=== PATIENT | female | born 1995 | race Caucasian/White ===

== ENCOUNTER 2017-08-22 09:00 | Emergency (ER) | payer BC ==
[~2017-08-22] VITALS: Ht 172.7 cm; Wt 61.2 kg
[2017-08-22] MEDS ORDERED: ACETAMINOPHEN 500 MG TABLET PO ONE (09:15)
[2017-08-22] MEDS ORDERED: IBUPROFEN 400 MG TABLET. PO ONE (09:15)
[2017-08-22] MEDS ORDERED: IV NORMAL SALINE 500ML BAG 500 ML IV SCH (09:15)
[2017-08-22] MEDS ORDERED: 0.9 % SODIUM CHLORIDE 10 ML DISP.SYRIN. IV PRN (09:15)
--- NOTE | 2017-08-22 09:18 | PHYS DOC ---
Past Medical History Past Medical History: Depression Additional Past Medical Histor: ADHD Past Surgical History: No Surgical History Alcohol Use: Occasionally Drug Use: Marijuana Adult General Chief Complaint Chief Complaint: SYNCOPE HPI HPI Patient is a pleasant 21-year-old female who suffered a syncopal episode this morning while standing in a salon. Patient admits that [place] did not eat much in way of food but did consume some alcohol beverages. This morning when she woke she felt little lightheaded she did take her ADHD medications and her Zoloft couple cough he had drove herself to her salon appointment this morning for her hair cut. Patient got out of her vehicle was standing at the desk when she began to feel lightheaded and dizzy. She describes a sense of peripheral visions and loss of vision on the edges with a darkening tunnel causing her to become very nauseated and lose consciousness. She fell from a standing position striking her head on the ground. There is no seizure activity on scene no postictal state. Patient denies any neck pain, other injuries other than the injury to the back of her skull. She denies any prior events like this in the past, denies any focal neurologic deficits to include weakness numbness tingling to her upper and lower arms and legs. Patient denies any chest pain, shortness of breath, abdominal pain or continued symptoms at this time. Pain in the back of her skull measures a 6 of 10. Review of Systems Review of Systems Constitutional: Denies fever or chills [] Eyes: Denies change in visual acuity, redness, or eye pain [] HENT: Denies nasal congestion or sore throat [] Respiratory: Denies cough or shortness of breath [] Cardiovascular: No additional information not addressed in HPI [] GI: Denies abdominal pain, nausea, vomiting, bloody stools or diarrhea [] : Denies dysuria or hematuria [] Musculoskeletal: Denies back pain or joint pain [] Integument: Denies rash or skin lesions [] Neurologic: She is making complains of posterior headache with generalized weakness and near-syncope/syncope Endocrine: Denies polyuria or polydipsia [] Current Medications Current Medications Current Medications Medications (Trade) Dose Ordered Sig/Christne Start Time Stop Time Status Last Admin Dose Admin Acetaminophen (Tylenol) 1,000 mg 1X ONCE 08/22/17 09:15 08/22/17 09:16 DC 08/22/17 09:23 1,000 MG Ibuprofen (Motrin) 400 mg 1X ONCE 08/22/17 09:15 08/22/17 09:16 DC 08/22/17 09:23 400 MG Sodium Chloride 500 ml @ 500 mls/hr Q1H 08/22/17 09:15 08/22/17 09:23 DC 08/22/17 09:22 500 MLS/HR Sodium Chloride (Normal Saline Flush) 10 ml QSHIFT PRN 08/22/17 09:15 08/22/17 09:22 10 ML Allergies Allergies Allergies Coded Allergies Type Severity Reaction Last Updated Verified No Known Drug Allergies 08/22/17 No Physical Exam Physical Exam Vital signs recorded on the chart within normal limits Constitutional: Well developed, well nourished, no acute distress, non-toxic appearance. [] HENT: Normocephalic, bilateral external ears normal, oropharynx moist, no oral injuries to the tongue or mouth no oral exudates, nose normal. She has a stated laceration measuring 1.2 cm the posterior occiput on the left. There is no step- offs, no crepitus no evidence of skull fracture [] Eyes: PERRLA, EOMI, conjunctiva normal, no discharge. [] Neck: Normal range of motion, no tenderness, supple, no stridor. [] Cardiovascular:Heart rate regular rhythm, no murmur [] Lungs & Thorax: Bilateral breath sounds clear to auscultation [] Abdomen: Bowel sounds normal, soft, no tenderness, no masses, no pulsatile masses. [] Skin: Warm, dry, no erythema, no rash. [] Back: No tenderness, no CVA tenderness. [] Extremities: No tenderness, no cyanosis, no clubbing, ROM intact, no edema. [] Neurologic: Alert and oriented X 3, normal motor function, normal sensory function, no focal deficits noted. [] Psychologic: Affect normal, judgement normal, mood normal. [] Current Patient Data Vital Signs Vital Signs Date Time Temp Pulse Resp B/P (MAP) Pulse Ox O2 Delivery O2 Flow Rate FiO2 08/22/17 10: 57 18 102/60 (74) 99 Room Air 08/22/17 09:04 98.1 98.1 Lab Values Laboratory Tests Test 08/22/17 09:11 White Blood Count 4.8 x10^3/uL (4.0-11.0) Red Blood Count 4.05 x10^6/uL (3.50-5.40) Hemoglobin 12.6 g/dL (12.0-15.5) Hematocrit 37.3 % (36.0-47.0) Mean Corpuscular Volume 92 fL (79-100) Mean Corpuscular Hemoglobin 31 pg (25-35) Mean Corpuscular Hemoglobin Concent 34 g/dL (31-37) Red Cell Distribution Width 14.0 % (11.5-14.5) Platelet Count 150 x10^3/uL (140-400) Neutrophils (%) (Auto) 63 % (31-73) Lymphocytes (%) (Auto) 25 % (24-48) Monocytes (%) (Auto) 11 % (0-9) H Eosinophils (%) (Auto) 2 % (0-3) Basophils (%) (Auto) 1 % (0-3) Neutrophils # (Auto) 3.0 x10^3uL (1.8-7.7) Lymphocytes # (Auto) 1.2 x10^3/uL (1.0-4.8) Monocytes # (Auto) 0.5 x10^3/uL (0.0-1.1) Eosinophils # (Auto) 0.1 x10^3/uL (0.0-0.7) Basophils # (Auto) 0.0 x10^3/uL (0.0-0.2) Sodium Level 141 mmol/L (136-145) Potassium Level 3.7 mmol/L (3.5-5.1) Chloride Level 106 mmol/L (98-107) Carbon Dioxide Level 26 mmol/L (21-32) Anion Gap 9 (6-14) Blood Urea Nitrogen 15 mg/dL (7-20) Creatinine 0.8 mg/dL (0.6-1.0) Estimated GFR (Cockcroft-Gault) 88.9 BUN/Creatinine Ratio 19 (6-20) Glucose Level 119 mg/dL (70-99) H Calcium Level 8.4 mg/dL (8.5-10.1) L Total Bilirubin 0.8 mg/dL (0.2-1.0) Aspartate Amino Transferase (AST) 16 U/L (15-37) Alanine Aminotransferase (ALT) 16 U/L (14-59) Alkaline Phosphatase 49 U/L (46-116) Total Protein 6.8 g/dL (6.4-8.2) Albumin 3.3 g/dL (3.4-5.0) L Albumin/Globulin Ratio 0.9 (1.0-1.7) L Serum Test, Qualitative Negative (NEG) Laboratory Tests 08/22/17 09:11 Laboratory Tests 08/22/17 09:11 EKG EKG []EKG timed 9:06 AM states APD every QRS normal sinus rhythm with a heart rate of 58 sinus bradycardia with a normal MD interval 118 QRS width of 76, QTC of 412 within normal limits no evidence of Brugada syndrome, Aotse-Ynuxlglqy-Uzywt , prolonged QT. This is normal looking EKG with only T-wave inversions in lead V1 and V2 which may be a normal variant. Radiology/Procedures Radiology/Procedures [] [facility] [address] [place], [place] [id number] IMAGING REPORT Signed PATIENT: ONEIL LANDRY ACCOUNT: [id number] : 1995 LOCATION: ER AGE: 21 SEX: F EXAM STATUS: REG ER ORD. PHYSICIAN: NU HALE MD REASON: syncope PROCEDURE: CT HEAD WO CONTRAST INDICATION: syncope COMPARISON: None. TECHNIQUE: Axial CT images obtained through the head without intravenous contrast. FINDINGS: No intracranial hemorrhage. No midline shift. Basal cisterns patents. Ventricles and sulci are unremarkable. No acute osseous abnormality. Orbits and paranasal sinuses partially seen and unremarkable. IMPRESSION: 1. No acute intracranial hemorrhage. PQRS Compliance Statement: One or more of the following individualized dose reduction techniques were utilized for this examination: 1. Automated exposure control 2. Adjustment of the mA and/or kV according to patient size 3. Use of iterative reconstruction technique DICTATED and SIGNED BY: ALEX GATICA MD DATE: 08/22/17 1002 CC: NU HALE MD; UNKNOWN PCP NAME ~ Course & Med Decision Making Course & Med Decision Making Pertinent Labs and Imaging studies reviewed. (See chart for details) []My syncope differential includes but not limited to: Neurally mediated vasovagal syncope, situational syncope, cardiac sinus syncope , orthostatic hypertension, medications, psychiatric interventions, neurologic syncope, cardiogenic syncopal B, to include organic heart disease congestive heart failure, cardiac dysrhythmia, seizure disorder, stroke or transient ischemic attack, bradycardia dysrhythmias, tachycardia dysrhythmias, PT, V. fib V. fib, cardiac abnormalities like first degree secondary third-degree AV blocks , prolonged QT, hypertrophic Lucian myopathy, severe pulmonic stenosis, pulmonary arterial hypertension, atrial myxomas, aortic stenosis, valvular failure, alcohol consumption, adrenal insufficiency, drug effects from things like antidepressants, antihypertensive agents like beta blockers, vasodilators including calcium channel blockers and nitrates, autonomic insufficiency. Resting here in the ER patient received a liter fluid she is not her CBC and CMP are normal her CT of her head which is unremarkable as well as no signs of fracture or intracranial injury or bleed. She will have a laceration of her scalp repaired per procedure note and will discharge her home with precautions. Dragon Disclaimer Dragon Disclaimer This electronic medical record was generated, in whole or in part, using a voice recognition dictation system. Departure Departure Impression: Primary Impression: Syncope Additional Impression: Head injury Disposition: 01 HOME, SELF-CARE Condition: IMPROVED Patient Instructions: Facial or Scalp Contusion, Laceration Care, Adult, Syncope Additional Instructions: My discharge plan Follow up: In addition patient is asked to followup with their primary doctor, within a week for followup examination and to address patient's ongoing medical conditions. Because patient does not have a regular medical doctor, a local physician Resource Sheet will be provided to establish care primary care. Patient is advised that in the Emergency Department primary complaints are addressed and only in light of known signs and symptoms. Patient should return immediately to the emergency department if new signs and symptoms develop or patient's condition worsens in any way. At time of discharge patient was in stable condition and had verbalized understanding of the discharge instructions. Scripts Bacitracin/Polymyxin B Sulfate (POLYSPORIN TOPICAL OINT) 28.3 Gm Oint...g. 1 MADELAINE TP TID for WOUND CARE, #1 TUBE DIRECTED BY PHYSICIAN Prov: NU HALE MD 08/22/17 Ibuprofen (IBUPROFEN) 400 Mg Tablet 400 MG PO PRN Q6HRS Y for INFLAMMATION for 10 Days, TAB Prov: NU HALE MD 08/22/17 Laceration Repair Lac Repair Indication: []Scalp laceration Procedure: The patient was placed in the appropriate position and anesthesia around the laceration measures approximately 2.2 cm there are no anesthesia for cleaning or repair. The area was then completed with hexedine and manual scrubbing.]. The laceration was on the scalp and is closed with approximately 5 joe in rapid succession with great approximation no additional lacerations were noted. The wound area was then dressed with [was covered with bacitracin ointment and a clean dressing. Total repaired wound length: [2.2-2.5 cm. Other Items: No step-offs no galeal involvement no active bleeding on procedure completion] The patient tolerated the procedure impression tolerated the procedure well with minimal palpitations to include pain was well-controlled and no bleeding Complications: None. Problem Qualifiers NU HALE MD Aug 22, 2017 09:18
[2017-08-22 09:29] LABS: BASO % 1 % (0-3); EOS % 2 % (0-3); HEMATOCRIT 37.3 % (36.0-47.0); HEMOGLOBIN 12.6 g/dL (12.0-15.5); LYMPH # 1.2 x10^3/uL (1.0-4.8); LYMPH % 25 % (24-48); MEAN CORPUSCULAR HEMOGLOBIN 31 pg (25-35); MEAN CORPUSCULAR HGB CONC 34 g/dL (31-37); MEAN CORPUSCULAR VOLUME 92 fL (79-100); MONO % 11 % (0-9); NEUT % 63 % (31-73); PLATELET COUNT 150 x10^3/uL (140-400); RED BLOOD COUNT 4.05 x10^6/uL (3.50-5.40); WHITE BLOOD COUNT 4.8 x10^3/uL (4.0-11.0)
[2017-08-22 09:38] LABS: CALCIUM 8.4 mg/dL (8.5-10.1); CREATININE 0.8 mg/dL (0.6-1.0); GFR 88.9; POTASSIUM 3.7 mmol/L (3.5-5.1)
[2017-08-22 09:42] LABS: NEG OBC SER NEG; POS OBC SER POS
[2017-08-22 09:44] LABS: ALBUMIN 3.3 g/dL (3.4-5.0); ALBUMIN/GLOBULIN RATIO 0.9 (1.0-1.7); TOTAL BILIRUBIN 0.8 mg/dL (0.2-1.0); TOTAL PROTEIN 6.8 g/dL (6.4-8.2)
--- NOTE | 2017-08-22 10:12 | RAD ---
INDICATION: syncope COMPARISON: None. TECHNIQUE: Axial CT images obtained through the head without intravenous contrast. FINDINGS: No intracranial hemorrhage. No midline shift. Basal cisterns patents. Ventricles and sulci are unremarkable. No acute osseous abnormality. Orbits and paranasal sinuses partially seen and unremarkable. IMPRESSION: 1. No acute intracranial hemorrhage. PQRS Compliance Statement: One or more of the following individualized dose reduction techniques were utilized for this examination: 1. Automated exposure control 2. Adjustment of the mA and/or kV according to patient size 3. Use of iterative reconstruction technique
--- NOTE | 2017-08-22 10:14 | EKG ---
[facility] [address] [place] [id number] Test Date: 2017-08-22 Test Time: 09:06:32 Pat Name: ONEIL LANDRY Department: Room: Gender: F Production Administrative Assistant: : 1995 Requested By: NU HALE Order Number: [id number] Reading MD: Cynthia Tucker Measurements Intervals [place] Rate: 58 P: 36 MO: 118 QRS: 80 QRSD: 76 T: 41 QT: 416 QTc: 412 Interpretive Statements SINUS RHYTHM NORMAL EKG Electronically Signed On 08-23-2017 19:28:45 CDT by Cynthia Tucker
[2017-08-22 10:17] VITALS: BP 102/60
[2017-08-22] MEDS ORDERED: IBUP-1027 PO (10:37)
[2017-08-22] MEDS ORDERED: BACI28.34 TP (10:37)
== END 2017-08-22 11:12 | disposition home or self-care (01) ==
LOC: ER 09:00
DX: R55 Syncope and collapse (principal); S01.01XA Laceration without foreign body of scalp, initial encounter; F32.9 Major depressive disorder, single episode, unspecified; F90.9 Attention-deficit hyperactivity disorder, unspecified type; F12.10 Cannabis abuse, uncomplicated; W18.09XA Striking against other object with subsequent fall, initial encounter; Y93.89 Activity, other specified; Y92.89 Other specified places as the place of occurrence of the external cause; Y99.8 Other external cause status
CPT/HCPCS: 12001; 36415; 70450; 80053; 84703; 85025; 93005; 96360; 99285; J7040